=== PATIENT | female | born 2005 | race Two or more races ===

== ENCOUNTER 2025-01-23 00:45 | Emergency (ER) | payer MEDICAID ==
[~2025-01-23] VITALS: Ht 177.8 cm; Wt 51.3 kg
--- NOTE | 2025-01-23 03:06 | ED.PDOC ---
GI ASSESSMENT HPI Comments PT PRESENTED TO ED FOR N/V X2 DAYS. PT STATED SHE IS 6 WEEKS . LMP: 12/02/2024. DENIES ABDOMINAL PAIN, CRAMPING, VAGINAL BLEEDING, OR VAGINAL SPOTTING Chief Complaint: Nausea/Vomiting Time Seen by MD: 01:32 Reviewed Notes: Nurses Notes, Medications, Allergies Allergies: Coded Allergies: No Known Drug Allergy (Verified Allergy, Unknown, 01/23/25) Information Source: Patient Mode of Arrival: Ambulatory Past Medical History PAST MEDICAL HISTORY: Denies Surgical History: Denies all surgeries NURSING CARE PARTNER History: No Pertinent NURSING CARE PARTNER History Family History Family History: Reviewed,noncontributory to illness, No family hx of Cancer, No family hx of DM, No family hx of Heart nico, No family hx of HTN, No family hx ofKidney nico, No family hx of Liver nico, No family hx of Lung nico, No family hx of Stroke Constitutional: denies: chills, diaphoresis, fatigue, fever, malaise, sweats, weakness, others EENTM: denies: blurred vision, double vision, ear bleeding, ear discharge, ear drainage, ear pain, ear ringing, eye pain, eye redness, hearing loss, mouth loco n, mouth swelling, nasal discharge, nose bleeding, nose congestion, nose pain, photophobia, tearing, throat pain, throat swelling, voice changes, others Respiratory: denies: cough, hemoptysis, orthopnea, SOB at rest, shortness of breath, SOB with excertion, stridor, wheezing, others Cardiovascular: denies: chest pain, dizzy spells, diaphoresis, Dyspnea on exertion, edema, irregular heart beat, left arm pain, lightheadedness, palpitations, PND, syncope, others Gastrointestinal: reports: nausea, vomiting; denies: abdomen distended, abdominal pain, blood streaked bowels, constipated, diarrhea, dysphagia, difficulty swallowing, hematemesis, melena, poor appetite, poor fluid intake, rectal bleeding, rectal pain, others Genitourinary: denies: abnormal vagina bleeding, burning, dyspareunia, dysuria, flank pain, frequency, hematuria, incontinence, pain, , vagina discharge, urgency, others Neurological: denies: dizziness, fainting, headache, left sided numbness, left sided weakness, numbness, paresthesia, pre-existing deficit, right sided numbness, right sided weakness, seizure, speech problems, tingling, tremors, weakness, others Musculoskeletal: denies: back pain, gout, joint pain, joint swelling, muscle pain, muscle stiffness, neck pain, others Integumetry: denies: bruises, change in color, change in hair/nails, dryness, laceration, lesions, lumps, rash, wounds, others Allergic/Immunocompromised: denies: Difficulty Healing, Frequent Infections, Hives, Itching, others Hematologic/Lymphatic: denies: anemia, blood clots, easy bleeding, easy bruising, swollen glands, others Endocrine: denies: excessive hunger, excessive sweating, excessive thirst, excessive urination, flushing, intolerance to cold, intolerance to heat, unexplained weight gain, unexplained weight loss, others Psychiatric: denies: anxiety, bipolar disorder, depression, hopeless, panic disorder, schizophrenia, sleepless, suicidal, others Physical Exam General Appearance: No Apparent Distress, Normal HEENT: Normal ENT Inspection, Pharynx Normal, TMs Normal Neck: Full Range of Motion, Non-Tender, Normal, Normal Inspection Respiratory: Chest Non-Tender, Lungs Clear, No Accessory Muscle Use, No Respiratory Distress, Normal Breath Sounds Cardiovascular: No Edema, No JVD, No Murmur, No Gallop, Normal Peripheral Pulses, Regular Rate/Rhythm Breast Exam: Deferred Gastrointestinal: No Organomegaly, Non Tender, No Pulsatile Mass, Normal Bowel Sounds, Soft Genitalia: Deferred Pelvic: Deferred Rectal: Deferred Extremities: Normal capillary refill, Normal inspection, Normal range of motion, Non-tender, No pedal edema Musculoskeletal : Apperance: Normal Neurologic: Alert, No Motor Deficits, Normal Affect, Normal Mood, No Sensory Deficits Cerebellar Function: Normal Reflexes: Normal Skin: Dry, Normal Color, Warm Lymphatic: No Adenopathy Was a procedure done? Was a procedure done?: No GI differential Dx Differential Diagnosis: Gastroenteritis, UTI, Dehydration, Food Poisoning X-Ray, Labs, Meds, VS Vital Signs Date Time Temp Pulse Resp B/P (MAP) Pulse Ox O2 Delivery O2 Flow Rate FiO2 01/23/25 03:17 Room Air 01/23/25 03:14 98.0 95 16 112/70 (84) 96 98.0 01/23/25 01:49 98.0 95 16 112/70 (84) 96 98.0 Lab Test 01/23/25 00:00 Range/Units Urine Color Pending Urine Clarity Pending Urine pH Pending Urine Specific Shirley Pending Urine Protein Pending Urine Ketones Pending Urine Blood Pending Urine Nitrite Pending Urine Bilirubin Pending Urine Urobilinogen Pending Urine Leukocyte Esterase Pending Urine RBC Pending Urine Microscopic WBC Pending Urine Squamous Epithelial Cells Pending Urine Bacteria Pending Urine Glucose Pending Current Medications Medications (Trade) Dose Ordered Sig/Ramses Route Start Time Stop Time Status Last Admin Sodium Chloride 1,000 ml @ 1,000 mls/hr Q1H ONCE IV 01/23/25 02:30 01/23/25 03:29 DC 01/23/25 03:32 Metoclopramide HCl (Reglan Injection) 5 mg ONCE ONCE IV 01/23/25 03:45 01/23/25 03:46 DC 01/23/25 03:38 X-Ray, Labs, Meds, VS Comment Patient was given 500 mL of normal saline IV patient requesting to leave did not want to wait for the fluids to finish or medication to be given she did not want to wait for her UA results as well. Advised patient of the risks such as infection, spontaneous miscarriage, bleeding, possibly patient indicated understanding and requested to sign out AMA. We will monitor patient's UA results and script antibiotics for treatment patient was advised and indicated understanding. Time of 1ST Reevaluation: 02:45 Reevaluation 1ST: Unchanged Patient Education/Counseling: Diagnosis, Treatment, Prognosis, Need For Follow Up Family Education/Counseling: No Family Present Departure 1 Departure Time of Disposition: 04:05 Impression: Primary Impression: Nausea and vomiting during prior to 22 weeks gestation Disposition: 07 LEFT AGAINST MEDICAL ADVICE Condition: Stable Discharged With: Self Critical Care Note Critical Care Time?: No Stability Stability form required: FAM Christian January 23, 2025 03:06
[2025-01-23 03:14] VITALS: BP 112/70; PULSE 95; RESP 16; TEMP 98; O2SAT 96
[2025-01-23] MEDS: SODIUM CHLORIDE 0.9% 1,000 ML IV ONE (03:32)
[2025-01-23] MEDS: METOCLOPRAMIDE HCL 5MG/ml INJ 2ml VIAL IV ONE (03:38)
[2025-01-23 04:07] LABS: Urine Bacteria MOD /hpf (None Seen); Urine Blood Negative /uL (Negative); Urine Clarity Turbid (Clear); Urine Color Yellow (Yellow); Urine Hyaline Cast FEW /lpf (0 - 2); Urine Mucus FEW (None Seen); Urine Protein, UAD 1+ (Negative); Urine Squamous Epithelial Cell MANY /hpf (<5); Urine Urobilinogen Normal (Negative); Urine WBC 5 /HPF (0-5)
[2025-01-23] MEDS ORDERED: CEPH500C PO (04:30)
== END 2025-01-23 03:45 | disposition left against medical advice (07) ==
LOC: ER 00:45
DX: O21.9 Vomiting of pregnancy, unspecified (principal); Z3A.01 Less than 8 weeks gestation of pregnancy
CPT/HCPCS: 81001; 96361; 96374; 99283; J2765; J7030